=== PATIENT | male | born 1960 | race Caucasian/White ===

== ENCOUNTER 2020-10-12 00:02 | Emergency (ER) | payer MEDICAID ==
[~2020-10-12] VITALS: Ht 182.9 cm; Wt 97.5 kg
[2020-10-12 00:52] LABS: BILIRUBIN,URINE NEGATIVE (NEGATIVE); COLOR,URINE YELLOW (YELLOW); LEUKOCYTE ESTERASE ,URINE NEGATIVE (NEGATIVE); NITRITE, URINE NEGATIVE (NEGATIVE); PH,URINE 6.5 (5.0-8.0); PROTEIN,URINE NEGATIVE (NEGATIVE); UGLUCOSE NEGATIVE (NEGATIVE); UROBILINOGEN,URINE 0.2 EU/dL (0.2)
[2020-10-12 00:53] LABS: BASOPHILS # (AUTO) 0.1 /CMM (0.0-0.2); BASOPHILS % (AUTO) 0.8 % (0.0-2.0); EOSINOPHILS % (AUTO) 0.9 % (0.0-6.0); HEMATOCRIT 44 % (39-51); HEMOGLOBIN 14.5 g/dL (13.5-17.5); LYMPHOCYTES # (AUTO) 1.6 /CMM (0.8-4.8); LYMPHOCYTES % (AUTO) 22.5 % (20.0-44.0); MEAN CORPUSCULAR HGB CONC 33 g/dl (31.0-36.0); MEAN CORPUSCULAR VOLUME 88 fL (80-96); MONOCYTES # (AUTO) 0.8 /CMM (0.1-1.30); MONOCYTES % (AUTO) 10.9 % (2.0-12.0); NEUTROPHILS # (AUTO) 4.7 /CMM (1.8-8.9); NEUTROPHILS % (AUTO) 64.9 % (43.0-81.0); PLATELET COUNT (AUTO) 283 /CMM (150-450); RED BLOOD CELL COUNT(AUTO) 5.06 MIL/uL (4.5-6.0); WHITE BLOOD COUNT (AUTO) 7.2 K/uL (4.3-11.0)
[2020-10-12 01:16] LABS: ALBUMIN 3.8 g/dL (3.4-5.0); BILIRUBIN,DIRECT 0.1 mg/dL (0.0-0.2); BILIRUBIN,TOTAL 0.4 mg/dL (0.2-1.0); CALCIUM, SERUM 8.9 mg/dL (8.5-10.1); CREATININE 1.4 mg/dL (0.6-1.3); TOTAL PROTEIN, SERUM 7.4 g/dL (6.4-8.2)
[2020-10-12 15:29] VITALS: BP 141/80
== END 2020-10-12 18:04 ==
LOC: ER 00:04
DX: F31.9 Bipolar disorder, unspecified (principal); R45.851 Suicidal ideations; Z59.0 Homelessness; Z20.822 Contact with and (suspected) exposure to COVID-19; R94.31 Abnormal electrocardiogram [ECG] [EKG]
CPT/HCPCS: 36415; 80048; 80076; 80299; 80307; 80320; 81003; 85025; 87426; 93005; 99285; C9803; G0480

== ENCOUNTER 2020-10-18 02:24 | Emergency (ER) | payer MEDICAID ==
[~2020-10-18] VITALS: Ht 182.9 cm; Wt 97.5 kg
--- NOTE | 2020-10-18 04:10 | NUR ---
PRESENTED TO THE ER FOR C/O DEPRESSION AND SI, WANNA HEURT HIMSELF AND REQUESTING COLUNTARY ADMISSION TO A PSYCH HOSPITAL. PT AMBULATORY WITH STEADY GAITS TO THE BATHROOM. URINE SAMPLE OBTAINED. PT REMAINED ON CLOSE SUPERVISION AND SI PRECAUTION. WILL CONT TO MONITOR
[2020-10-18 04:39] LABS: HEMATOCRIT 44 % (39-51); HEMOGLOBIN 14.6 g/dL (13.5-17.5); MEAN CORPUSCULAR HGB CONC 33 g/dl (31.0-36.0); MEAN CORPUSCULAR VOLUME 87 fL (80-96); NEUTROPHILS % (AUTO) 65.6 % (43.0-81.0); PLATELET COUNT (AUTO) 277 /CMM (150-450); RED BLOOD CELL COUNT(AUTO) 5.07 MIL/uL (4.5-6.0); WHITE BLOOD COUNT (AUTO) 7.5 K/uL (4.3-11.0)
[2020-10-18 04:40] LABS: BASOPHILS # (AUTO) 0.1 /CMM (0.0-0.2); BASOPHILS % (AUTO) 1.1 % (0.0-2.0); EOSINOPHILS % (AUTO) 1.2 % (0.0-6.0); LYMPHOCYTES # (AUTO) 1.8 /CMM (0.8-4.8); MONOCYTES # (AUTO) 0.6 /CMM (0.1-1.30); MONOCYTES % (AUTO) 8.1 % (2.0-12.0); NEUTROPHILS # (AUTO) 4.9 /CMM (1.8-8.9)
[2020-10-18 04:41] LABS: BILIRUBIN,URINE NEGATIVE (NEGATIVE); COLOR,URINE YELLOW (YELLOW); LEUKOCYTE ESTERASE ,URINE NEGATIVE (NEGATIVE); NITRITE, URINE NEGATIVE (NEGATIVE); PROTEIN,URINE NEGATIVE (NEGATIVE); UGLUCOSE NEGATIVE (NEGATIVE); UROBILINOGEN,URINE 0.2 EU/dL (0.2)
[2020-10-18 04:56] LABS: BACTERIA,URINE None seen /HPF (None Seen); RBC,URINE 0-2 /HPF (0-2); SQUAMOUS EPITHELIAL CELL,UR Few /HPF (None Seen); WBC,URINE 0-2 /HPF (0-3)
[2020-10-18 05:11] LABS: CALCIUM, SERUM 8.8 mg/dL (8.5-10.1); CARBON DIOXIDE 28 mmol/L (21-32); CHLORIDE 105 mmol/L (98-107); GLUCOSE 83 mg/dL (74-106); POTASSIUM 4.2 mmol/L (3.5-5.1); SODIUM SERUM 142 mmol/L (136-145); UREA NITROGEN, BLOOD 15 mg/dL (7-18)
[2020-10-18 05:17] LABS: ALANINE AMINOTRANSFERASE 32 U/L (12-78); ALBUMIN 3.9 g/dL (3.4-5.0); ALCOHOL, BLOOD 10 mg/dL (0-0); ALKALINE PHOSPHATASE 82 U/L (46-116); ASPARTATE AMINOTRANSFERASE 22 U/L (15-37); BILIRUBIN,DIRECT 0.1 mg/dL (0.0-0.2); BILIRUBIN,TOTAL 0.3 mg/dL (0.2-1.0); TOTAL PROTEIN, SERUM 7.6 g/dL (6.4-8.2)
[2020-10-18 05:24] LABS: ACETAMINOPHEN < 2 ug/ml (10-30)
--- NOTE | 2020-10-18 08:36 | NUR ---
PATIENT ASLEEP BUT EASILY AROUSABLE. NO DISTRESS NOTED. NEEDS ATTENDED.
--- NOTE | 2020-10-18 09:41 | NUR ---
SPOKE TO RODRIGUEZ FROM [facility] AND PATIENT HAS BEEN ACCEPTED TO [facility] UNDER THE CARE OF DR. COLLINS. PATIENT WILL BE GOING TO UNIT 1. NUMBER FOR REPORT [phone] EXT [phone].
--- NOTE | 2020-10-18 09:45 | NUR ---
CALLED [facility] FOR TRANSPORT TO [facility]. ETA 45 MINUTES.
--- NOTE | 2020-10-18 09:47 | NUR ---
report given to Kari de luna for gricelda
[2020-10-18 09:48] VITALS: BP 145/83
--- NOTE | 2020-10-18 11:18 | NUR ---
patient picked up by private ambulance going to [facility] in no distress.
== END 2020-10-18 11:18 ==
LOC: ER 02:24
DX: F31.9 Bipolar disorder, unspecified (principal); R45.851 Suicidal ideations; F20.9 Schizophrenia, unspecified; Z20.822 Contact with and (suspected) exposure to COVID-19
CPT/HCPCS: 36415; 80048; 80076; 80299; 80307; 80320; 81001; 85025; 87426; 99285; C9803; G0480

== ENCOUNTER 2020-11-03 18:34 | Emergency (ER) | payer MEDICAID ==
[~2020-11-03] VITALS: Ht 182.9 cm; Wt 90.7 kg
--- NOTE | 2020-11-03 18:49 | NUR ---
TO ER CHAIR AWAITING MD REBOLLEDO,1:1 SITTER,SUICIDE PRECAUTION
[2020-11-03 19:36] LABS: BILIRUBIN,URINE SMALL (NEGATIVE); COLOR,URINE YELLOW (YELLOW); LEUKOCYTE ESTERASE ,URINE Negative (NEGATIVE); NITRITE, URINE Negative (NEGATIVE); PH,URINE 5.5 (5.0-8.0); PROTEIN,URINE Negative (NEGATIVE); UGLUCOSE Negative (NEGATIVE)
[2020-11-03 19:40] LABS: BACTERIA,URINE Rare /HPF (None Seen); RBC,URINE NONE SEEN /HPF (0-2); SQUAMOUS EPITHELIAL CELL,UR Few /HPF (None Seen); WBC,URINE NONE SEEN /HPF (0-3)
[2020-11-03 19:52] LABS: BASOPHILS % (AUTO) 0.3 % (0.0-2.0); EOSINOPHILS % (AUTO) 2.4 % (0.0-6.0); HEMATOCRIT 41 % (39-51); HEMOGLOBIN 13.3 g/dL (13.5-17.5); LYMPHOCYTES # (AUTO) 1.1 /CMM (0.8-4.8); LYMPHOCYTES % (AUTO) 14.2 % (20.0-44.0); MEAN CORPUSCULAR HGB CONC 33 g/dl (31.0-36.0); MEAN CORPUSCULAR VOLUME 89 fL (80-96); MONOCYTES # (AUTO) 0.7 /CMM (0.1-1.30); MONOCYTES % (AUTO) 8.2 % (2.0-12.0); NEUTROPHILS % (AUTO) 74.9 % (43.0-81.0); PLATELET COUNT (AUTO) 293 /CMM (150-450); WHITE BLOOD COUNT (AUTO) 8.1 K/uL (4.3-11.0)
[2020-11-03 19:59] LABS: CALCIUM, SERUM 8.3 mg/dL (8.5-10.1); CARBON DIOXIDE 29 mmol/L (21-32); CHLORIDE 102 mmol/L (98-107); GLUCOSE 126 mg/dL (74-106); POTASSIUM 4.4 mmol/L (3.5-5.1); SODIUM SERUM 136 mmol/L (136-145); UREA NITROGEN, BLOOD 19 mg/dL (7-18)
[2020-11-03 20:05] LABS: ALANINE AMINOTRANSFERASE 83 U/L (12-78); ALBUMIN 3.3 g/dL (3.4-5.0); ALCOHOL, BLOOD 4 mg/dL (0-0); ALKALINE PHOSPHATASE 83 U/L (46-116); ASPARTATE AMINOTRANSFERASE 120 U/L (15-37); BILIRUBIN,DIRECT 0.1 mg/dL (0.0-0.2); BILIRUBIN,TOTAL 0.3 mg/dL (0.2-1.0); TOTAL PROTEIN, SERUM 6.8 g/dL (6.4-8.2)
[2020-11-03 20:07] LABS: ACETAMINOPHEN < 2 ug/ml (10-30)
--- NOTE | 2020-11-03 20:56 | NUR ---
LAB CALLED REGARDING NEGATIVE COVID RESULT.
--- NOTE | 2020-11-03 21:03 | NUR ---
CLINICAL AND FACESHEET FAXED TO [facility]TAKE FOR VOLUNTARY PSYCH ADMISSION.
[2020-11-04 01:05] VITALS: BP 130/88
--- NOTE | 2020-11-04 01:57 | NUR ---
TRANSFER INFORMATION: PT ACCEPTED AT [facility] ACCEPTING MD COLLINS PT WILL GO TO UNIT 2 PHONE NUMBER FOR REPORT
--- NOTE | 2020-11-04 02:06 | NUR ---
called [facility] to set up transport. will call back with unruly. Trip # [id number]
--- NOTE | 2020-11-04 03:18 | NUR ---
[facility] E[facility]-45 MINUTES
--- NOTE | 2020-11-04 03:23 | NUR ---
REPORT GIVEN TO ANT EASTMAN AT [facility]
--- NOTE | 2020-11-04 03:50 | NUR ---
report given to ems along with transfer paperwork
== END 2020-11-04 03:58 ==
LOC: ER 18:36
DX: R45.851 Suicidal ideations (principal); F31.9 Bipolar disorder, unspecified; F20.9 Schizophrenia, unspecified; Z20.822 Contact with and (suspected) exposure to COVID-19
CPT/HCPCS: 36415; 80048; 80076; 80299; 80307; 80320; 81001; 85025; 87426; 99285; C9803; G0480

== ENCOUNTER 2020-11-22 01:38 | Emergency (ER) | payer MEDICAID ==
[~2020-11-22] VITALS: Ht 177.8 cm; Wt 90.7 kg
--- NOTE | 2020-11-22 02:17 | NUR ---
URINE COLLECTED. SENT TO LAB
--- NOTE | 2020-11-22 02:30 | NUR ---
PRESENTED TO THE ER FOR C/O SI, PLANNING RUN IN TO TRAIN. PT AMBULATORY WITH STEADY GAITS TO THE BATHROOM. URINE COLLECTED AND SENT TO LAB. VSS. PT REMAINED UNDER CLOSE SUPERVISION AND SI PRECAUTION IMPLEMENTED. WILL CONT TO MONITOR ,
[2020-11-22 02:36] LABS: BILIRUBIN,URINE NEGATIVE (NEGATIVE); COLOR,URINE YELLOW (YELLOW); LEUKOCYTE ESTERASE ,URINE NEGATIVE (NEGATIVE); NITRITE, URINE NEGATIVE (NEGATIVE); PROTEIN,URINE NEGATIVE (NEGATIVE); UGLUCOSE NEGATIVE (NEGATIVE); UROBILINOGEN,URINE 0.2 EU/dL (0.2)
[2020-11-22 02:38] LABS: BASOPHILS # (AUTO) 0.1 /CMM (0.0-0.2); BASOPHILS % (AUTO) 0.8 % (0.0-2.0); EOSINOPHILS % (AUTO) 1.7 % (0.0-6.0); HEMATOCRIT 44 % (39-51); HEMOGLOBIN 14.5 g/dL (13.5-17.5); LYMPHOCYTES # (AUTO) 1.9 /CMM (0.8-4.8); LYMPHOCYTES % (AUTO) 19.7 % (20.0-44.0); MEAN CORPUSCULAR HGB CONC 33 g/dl (31.0-36.0); MEAN CORPUSCULAR VOLUME 88 fL (80-96); MONOCYTES # (AUTO) 0.8 /CMM (0.1-1.30); MONOCYTES % (AUTO) 8.3 % (2.0-12.0); NEUTROPHILS # (AUTO) 6.5 /CMM (1.8-8.9); NEUTROPHILS % (AUTO) 69.5 % (43.0-81.0); PLATELET COUNT (AUTO) 343 /CMM (150-450); RED BLOOD CELL COUNT(AUTO) 5.01 MIL/uL (4.5-6.0); WHITE BLOOD COUNT (AUTO) 9.4 K/uL (4.3-11.0)
[2020-11-22 02:47] LABS: CALCIUM, SERUM 8.9 mg/dL (8.5-10.1); CREATININE 1.4 mg/dL (0.6-1.3); POTASSIUM 4.5 mmol/L (3.5-5.1)
[2020-11-22 02:52] LABS: ALBUMIN 3.9 g/dL (3.4-5.0); BILIRUBIN,DIRECT 0.1 mg/dL (0.0-0.2); BILIRUBIN,TOTAL 0.4 mg/dL (0.2-1.0); TOTAL PROTEIN, SERUM 7.7 g/dL (6.4-8.2)
[2020-11-22 02:58] LABS: BACTERIA,URINE None seen /HPF (None Seen); SQUAMOUS EPITHELIAL CELL,UR Few /HPF (None Seen); URINE AMORPHOUS URATE Few /HPF (None Seen); WBC,URINE 0-2 /HPF (0-3)
--- NOTE | 2020-11-22 03:01 | NUR ---
COVID NEGATIVE PER LAB
--- NOTE | 2020-11-22 03:23 | NUR ---
FACESHEET AND CLINICALS FAXED TO [facility].
--- NOTE | 2020-11-22 07:25 | NUR ---
ASSESSED PT ON BED ASLEEP EASILY AROUSABLE, NOT IN RESPIRATORY DISTRESS, V/S STABLE, KEPT RESTED AND COMFORTABLE. WILL CONTINUE TO MONITOR.
--- NOTE | 2020-11-22 09:46 | NUR ---
PT ACCEPTED TO [facility] [place] UNDER DR. TEJADA CALL [phone] X [phone] ROSSY.
--- NOTE | 2020-11-22 10:00 | NUR ---
CALLED TRANSPORT AM [facility] ETA 60 MINS PER CECIL.
--- NOTE | 2020-11-22 10:30 | NUR ---
SS Consult: SS Consult requested for SI. The pt. is a 60- year old male. JANELLE met with pt. bedside. The pt. is Alert & oriented x 4. The pt. stated he came to seek medical attention for SI with plan to run into traffic. JANELLE assessed pt.s mental health Hx. Per pt. he has been diagnosed with Depression & schizophrenia in the past and has been prescribed with Zoloft. Per pt. he is experiencing homelessness since 2017 and was last residing at [facility] but left because they wanted to take his phone away if he did not wear a face mask. Per pt. he receives food stamps. Per pt. his support system includes his sister, Belgica Marquez [phone]. Per pt. he has current SI with plan to run into traffic. Pt. denies HI and stated he is havign auditory hallucinations and voices tell him to "Jump" . JANELLE offered pt. psychiatric placement and patient is agreeable. Patient has been accepted to [facility] [phone]. The pt. signed homeless waiver. JANELLE provided pt. with the following Homeless resources and pt. accepted them : Substance Abuse resources provided included: [facility] Substance Abuse Self-Helpline ([facility]) ; CRI -HELP [address] [facility]. [place] 916t01 ; [facility] [address]63 [facility] 20008 ; [facility] Rehabilitation Program [address] [facility] [address] ; [facility] 400 [facility] [address] ; [facility] 1753 [facility] [address] ; Sameera [facility] 909 Ivan [facility] [address] ; [facility] Substance Abuse Helpline([facility] ; [facility] ; [facility]; [facility]; Cri-Help [place]; [facility] Ildefonso Coppola; [facility]; [facility] [place]; [facility] [place]; [facility], [facility]. [facility]; Alcoholics Anonymous -SFV; Ac-Lxga-Iilefof ; Marijuana Anonymous -SFV; Narcotics Anonymous www.na.org; Year-round shelters: [place] [facility] [address] [place], [place] [id number] ; [facility] [address] [place] [address]; [facility] Dhulpcy8550 [facility] [address] Winter Shelters: [facility] Provider: [facility] [place] Address: [address] [place], [address] # of Beds: 47 Population Served: [facility] 6 | [facility] Kari Ortiz [place] Provider: Home at Last Address: [address] [place] [address], [address] # of Beds: 66 Population Served: [facility] Novafora [place] Provider: First to Serve Address: [address] [facility], [address] # of Beds: 56 Population Served: [facility] Luis Agu[place] Provider: SSG/Ms. Zep[facility] House Address: [address] [facility], [address] # of Beds: 49 Population Served: [facility] 8 | [facility] Provider: First to Serve Address: [address], [address] # of Beds: 37 Population Served: [facility] Hygiene: [place] [facility]: [address] Oswaldo Jimenezridge ; [facility] [address] Cairopaulino Reseda ; [facility] [address] Avalfreda, [place] . Food Resources: [place] [facility] at [facility]- [address]. [place]; Meet Each Need with Dignity ([facility]) [address] [facility] CenterEna [place]; [facility] Food Pantry 0463 [facility]; [facility] 2557 [facility]. Mental Health resources provided: [facility] [address] [place] [address] ; [facility] [address] [facility] [address], [place] [address] ; [facility] [address] [place] [address] ; [facility] [address] [place], [place] [id number] Healthcare Clinics: [facility] [address] [facility], [address] [place]. [place] ; [facility] [address] [facility] [address] [place] [address]; [facility] Health [place] [address] [facility]. [place] [phone] Counseling--Outpatient [facility] [address] [facility], [place] [address] (Specializes in in-depth psychotherapy for emotional distress: anxiety, depression, interpersonal conflicts, life transitions, childhood abuse) [facility] [address] [place] [address] (Assist with solving problem marital difficulties, separation & divorce, aging parents, & grief, chronic & terminal illness) [facility] [address] [place] [address] (Deal with loss & grief, anxiety, marital difficulties) Homebound/Mental Health Services [address], [address] [place] [address] (Provide in-home mental services to people who are incapable of leaving their homes) Organization for Needs of the Elderly Senior Service/Resource Center [address] [place] [address] [facility] [address]. Ildefonso Coppola [place] [phone] PSYCHIATRIC OUTPATIENT SERVICES [facility] Partial Hospitalization and Intensive Outpatient Program (Managed Care and [place] Only)[address] Petty Zoraida. [facility] [phone] [facility] Partial Hospitalization and Outpatient [id number] [place], [place] [phone] [facility] Partial Hospitalization and Outpatient Nquikmn3054 Ildefonso [address]. [place], [place] [phone] ILDEFONSO CICI [facility] [place] [id number] [place], [place] [phone] [facility] Ildefonso Coppola Partial Hospitalization and Outpatient [id number] Bridgette VICTORINA [phone]
[2020-11-22 11:19] VITALS: BP 110/71
--- NOTE | 2020-11-22 11:20 | NUR ---
patient picked up by private ambulance going to [facility], in no distress.
--- NOTE | 2020-11-22 11:28 | NUR ---
REPORT GIVEN TO RAIZA MCFARLAND FROM [facility] FOR NATASHA.
== END 2020-11-22 11:20 ==
LOC: ER 01:43
DX: R45.851 Suicidal ideations (principal); F31.9 Bipolar disorder, unspecified; Z59.0 Homelessness; F17.200 Nicotine dependence, unspecified, uncomplicated; F20.9 Schizophrenia, unspecified; Z20.822 Contact with and (suspected) exposure to COVID-19; F10.10 Alcohol abuse, uncomplicated; Y90.0 Blood alcohol level of less than 20 mg/100 ml; R03.0 Elevated blood-pressure reading, without diagnosis of hypertension
CPT/HCPCS: 36415; 80048; 80076; 80299; 80307; 80320; 81001; 85025; 87426; 99285; C9803; G0480

== ENCOUNTER 2021-08-05 10:55 | Emergency (ER) | payer MEDICAID ==
[~2021-08-05] VITALS: Ht 182.9 cm; Wt 102.1 kg
--- NOTE | 2021-08-05 10:55 | NUR ---
[address]IB[address] C/O SI "I WANT TO JUMP OFF THE BRIDGE." REQUESTING VOLUNTARY PSYCH ADMISSION TO [facility]. PT IS AAOX4, NOT IN RESPIRATORY DISTRESS, V/S STABLE, KEPT RESTED AND COMFORTABLE. WILL CONTINUE TO MONITOR.
--- NOTE | 2021-08-05 11:00 | NUR ---
SEEN AND EXAMINED BY .
--- NOTE | 2021-08-05 11:04 | NUR ---
URINAL GIVEN BUT UNABLE TO PROVIDE URINE SPECIMEN THIS TIME.
--- NOTE | 2021-08-05 11:24 | NUR ---
URINE COLLECTED AND SENT TO LAB
--- NOTE | 2021-08-05 11:26 | NUR ---
COVID SWAB DONE AND SENT TO LAB
[2021-08-05 11:33] LABS: BASOPHILS # (AUTO) 0.1 K/uL (0.0-0.2); BASOPHILS % (AUTO) 0.6 % (0.0-2.0); EOSINOPHILS % (AUTO) 1.3 % (0.0-6.0); HEMATOCRIT 43 % (39-51); HEMOGLOBIN 14.3 g/dL (13.5-17.5); LYMPHOCYTES # (AUTO) 1.4 K/uL (0.8-4.8); LYMPHOCYTES % (AUTO) 10.5 % (20.0-44.0); MEAN CORPUSCULAR HGB CONC 33 g/dl (31.0-36.0); MEAN CORPUSCULAR VOLUME 88 fL (80-96); MONOCYTES # (AUTO) 1.2 K/uL (0.1-1.30); MONOCYTES % (AUTO) 9.3 % (2.0-12.0); NEUTROPHILS # (AUTO) 10.3 K/uL (1.8-8.9); NEUTROPHILS % (AUTO) 78.3 % (43.0-81.0); PLATELET COUNT (AUTO) 326 K/uL (150-450); RED BLOOD CELL COUNT(AUTO) 4.89 MIL/uL (4.5-6.0); WHITE BLOOD COUNT (AUTO) 13.1 K/uL (4.3-11.0)
[2021-08-05 11:34] LABS: BILIRUBIN,URINE NEGATIVE (NEGATIVE); COLOR,URINE YELLOW (YELLOW); LEUKOCYTE ESTERASE ,URINE NEGATIVE (NEGATIVE); NITRITE, URINE NEGATIVE (NEGATIVE); PH,URINE 5.5 (5.0-8.0); PROTEIN,URINE NEGATIVE (NEGATIVE); UGLUCOSE NEGATIVE (NEGATIVE); UROBILINOGEN,URINE 0.2 EU/dL (0.2)
[2021-08-05 11:40] LABS: BACTERIA,URINE None seen /HPF (None Seen); RBC,URINE 0-2 /HPF (0-2); SQUAMOUS EPITHELIAL CELL,UR Few /HPF (None Seen); WBC,URINE NONE SEEN /HPF (0-3)
[2021-08-05 12:30] LABS: ALANINE AMINOTRANSFERASE 51 U/L (12-78); ALBUMIN 3.9 g/dL (3.4-5.0); ALKALINE PHOSPHATASE 70 U/L (46-116); ASPARTATE AMINOTRANSFERASE 50 U/L (15-37); BILIRUBIN,DIRECT 0.3 mg/dL (0.0-0.2); CALCIUM, SERUM 8.7 mg/dL (8.5-10.1); CARBON DIOXIDE 22 mmol/L (21-32); CHLORIDE 101 mmol/L (98-107); CREATININE 1.4 mg/dL (0.6-1.3); GLUCOSE 99 mg/dL (74-106); POTASSIUM 3.7 mmol/L (3.5-5.1); SODIUM SERUM 135 mmol/L (136-145); TOTAL PROTEIN, SERUM 7.6 g/dL (6.4-8.2); UREA NITROGEN, BLOOD 25 mg/dL (7-18)
[2021-08-05 12:33] LABS: ALCOHOL, BLOOD < 3 mg/dL (0-0)
[2021-08-05 12:34] LABS: ACETAMINOPHEN 0 ug/ml (10-30)
--- NOTE | 2021-08-05 18:35 | NUR ---
REFAXED CLINICALS TO INTAKE.
--- NOTE | 2021-08-05 18:49 | NUR ---
AWATING ACCEPTANCE TO [facility], WILL LET US KNOW.
--- NOTE | 2021-08-05 20:40 | NUR ---
ACC[facility]PED [facility] UNDER DR LEE REPORT [phone] [facility] TO PICK PT UP
--- NOTE | 2021-08-05 20:44 | NUR ---
REPORT GIVEN TO CHARMAINE AT [facility]
--- NOTE | 2021-08-05 21:30 | NUR ---
Nilesh rizzo in ED - 08/06/21 at 0120 by STEFF PT PICKED UP BY [facility]. ALL BELONGINGS TRANSFERRED WITH PT.
[2021-08-05 22:02] VITALS: BP 117/76
--- NOTE | 2021-08-05 22:15 | NUR ---
PT PICKED UP BY [facility]. ALL BELONGINGS TRANSFERRED WITH PT.
== END 2021-08-05 22:15 ==
LOC: ER 10:57
DX: R45.851 Suicidal ideations (principal); Z20.822 Contact with and (suspected) exposure to COVID-19; F20.9 Schizophrenia, unspecified; F17.200 Nicotine dependence, unspecified, uncomplicated; Z59.00 Homelessness unspecified
CPT/HCPCS: 36415; 80048; 80076; 80143; 80307; 80320; 81001; 85025; 87426; 99285; C9803; G0480

== ENCOUNTER 2021-09-18 20:12 | Emergency (ER) | payer MEDICAID ==
[~2021-09-18] VITALS: Ht 182.9 cm; Wt 113.4 kg
--- NOTE | 2021-09-18 20:40 | NUR ---
PATIENT BIBS C/O S/I WITH PLAN TO JUMP OFF BRIDGE. PT SEEKING VOLUNTARY ADMISSION TO [facility]. PATIENT A/O X 4 RR EVEN AND UNLABORED. NO SOB NOTED. PATIENT AMBULATES WITH STEADY GAIT. PATIENT TAKEN TO ER BED 18. PATIENT BELONGINGS TAKEN AND PLACED IN PATIENT LOCKER. PATIENT PLACED IN HOSPITAL GOWN.
--- NOTE | 2021-09-18 20:47 | NUR ---
COVID SWAB DONE AND SENT TO LAB
--- NOTE | 2021-09-18 20:47 | NUR ---
URINE COLLECTED AND SENT TO LAB
--- NOTE | 2021-09-18 20:47 | NUR ---
ER MULTIPLE LAUNCH ROCKET SYSTEM CREWMEMBER @ BEDSIDE FOR BLOOD DRAW
[2021-09-18 20:49] LABS: BASOPHILS # (AUTO) 0.1 K/uL (0.0-0.2); BASOPHILS % (AUTO) 0.7 % (0.0-2.0); EOSINOPHILS % (AUTO) 2.6 % (0.0-6.0); HEMATOCRIT 42 % (39-51); HEMOGLOBIN 14.1 g/dL (13.5-17.5); LYMPHOCYTES # (AUTO) 1.6 K/uL (0.8-4.8); LYMPHOCYTES % (AUTO) 16.6 % (20.0-44.0); MEAN CORPUSCULAR HGB CONC 33 g/dl (31.0-36.0); MEAN CORPUSCULAR VOLUME 88 fL (80-96); MONOCYTES # (AUTO) 0.9 K/uL (0.1-1.30); NEUTROPHILS # (AUTO) 6.9 K/uL (1.8-8.9); NEUTROPHILS % (AUTO) 71.1 % (43.0-81.0); PLATELET COUNT (AUTO) 267 K/uL (150-450); RED BLOOD CELL COUNT(AUTO) 4.83 MIL/uL (4.5-6.0); WHITE BLOOD COUNT (AUTO) 9.7 K/uL (4.3-11.0)
[2021-09-18 21:19] LABS: BILIRUBIN,URINE NEGATIVE (NEGATIVE); COLOR,URINE YELLOW (YELLOW); LEUKOCYTE ESTERASE ,URINE NEGATIVE (NEGATIVE); NITRITE, URINE NEGATIVE (NEGATIVE); PROTEIN,URINE NEGATIVE (NEGATIVE); UGLUCOSE NEGATIVE (NEGATIVE); UROBILINOGEN,URINE 0.2 EU/dL (0.2)
[2021-09-18 21:26] LABS: ACETAMINOPHEN < 0 ug/ml (10-30); ALANINE AMINOTRANSFERASE 46 U/L (12-78); ALBUMIN 3.8 g/dL (3.4-5.0); ALCOHOL, BLOOD < 3 mg/dL (0-0); ALKALINE PHOSPHATASE 86 U/L (46-116); ASPARTATE AMINOTRANSFERASE 36 U/L (15-37); BILIRUBIN,DIRECT 0.2 mg/dL (0.0-0.2); BILIRUBIN,TOTAL 0.6 mg/dL (0.2-1.0); CALCIUM, SERUM 8.7 mg/dL (8.5-10.1); CARBON DIOXIDE 28 mmol/L (21-32); CHLORIDE 101 mmol/L (98-107); CREATININE 1.2 mg/dL (0.6-1.3); GLUCOSE 104 mg/dL (74-106); POTASSIUM 3.8 mmol/L (3.5-5.1); SODIUM SERUM 134 mmol/L (136-145); TOTAL PROTEIN, SERUM 7.2 g/dL (6.4-8.2); UREA NITROGEN, BLOOD 17 mg/dL (7-18)
[2021-09-18 21:30] LABS: BACTERIA,URINE Rare /HPF (None Seen); SQUAMOUS EPITHELIAL CELL,UR Few /HPF (None Seen); WBC,URINE NONE SEEN /HPF (0-3)
--- NOTE | 2021-09-19 03:29 | NUR ---
PT SLEEPING WELL. RESP EVEN AND NON LABORED. SAFETY MEASURES IN PLACE
--- NOTE | 2021-09-19 05:28 | NUR ---
FAXED CLINICALS AND FACE SHEET TO [facility]
--- NOTE | 2021-09-19 11:13 | NUR ---
PER [facility]TA[facility].ACCEPTED AWAITING FOR BED ASSIGNMENT AND TRANPORT INFO.
[2021-09-19 12:03] VITALS: BP 134/75
--- NOTE | 2021-09-19 12:20 | NUR ---
LUNCH PROVIDED TO PT
--- NOTE | 2021-09-19 13:36 | NUR ---
CALLED [facility] AND SET UP S TRANPOSRT ETA [phone]
--- NOTE | 2021-09-19 13:49 | NUR ---
REPORT GIVEN TO NURSE YESSY FROM [facility]
--- NOTE | 2021-09-19 16:10 | NUR ---
TRANSPORTED TO [facility] IN STABLE CONDITION.
== END 2021-09-19 16:11 ==
LOC: ER 20:12
DX: R45.851 Suicidal ideations (principal); F31.9 Bipolar disorder, unspecified; F20.9 Schizophrenia, unspecified; Z59.01 Sheltered homelessness; F15.10 Other stimulant abuse, uncomplicated; Z20.822 Contact with and (suspected) exposure to COVID-19
CPT/HCPCS: 36415; 80048; 80076; 80143; 80307; 80320; 81001; 85025; 87426; 99285; C9803; G0480

== ENCOUNTER 2021-10-06 02:10 | Emergency (ER) | payer MEDICAID ==
[~2021-10-06] VITALS: Ht 182.9 cm; Wt 90.7 kg
--- NOTE | 2021-10-06 04:55 | NUR ---
PATIENT BIBSELF C/O MED CLEARANCE FOR VOL PSYCH ADMIT, FEELS DEPRESSED, DENIES SI/HI. PATIENT IS A/O X 4, RR EVEN AND UNLABORED, NO SOB NOTED. PATIENT VSS. PT AMBULATES WITH STEADY GAIT, SKIN INTACT. PATIENT PLACED IN HOSPITAL GOWN, BELONGINGS IN LOCKER. PATIENT TAKEN TO ER BED 18.
[2021-10-06] MEDS ORDERED: ASPIRIN 81 MG TAB.CHEW PO ONE (05:00)
--- NOTE | 2021-10-06 05:15 | NUR ---
URINE COLLECTED AND SENT TO LAB
--- NOTE | 2021-10-06 05:20 | NUR ---
DASHA COLLECTED AND SENT TO LAB
[2021-10-06 05:23] LABS: BASOPHILS # (AUTO) 0.1 K/uL (0.0-0.2); BASOPHILS % (AUTO) 0.9 % (0.0-2.0); HEMATOCRIT 44 % (39-51); HEMOGLOBIN 14.6 g/dL (13.5-17.5); LYMPHOCYTES # (AUTO) 1.6 K/uL (0.8-4.8); LYMPHOCYTES % (AUTO) 24.9 % (20.0-44.0); MEAN CORPUSCULAR HGB CONC 33 g/dl (31.0-36.0); MEAN CORPUSCULAR VOLUME 88 fL (80-96); MONOCYTES # (AUTO) 0.6 K/uL (0.1-1.30); MONOCYTES % (AUTO) 9.1 % (2.0-12.0); NEUTROPHILS % (AUTO) 62.1 % (43.0-81.0); PLATELET COUNT (AUTO) 280 K/uL (150-450); RED BLOOD CELL COUNT(AUTO) 4.98 MIL/uL (4.5-6.0); WHITE BLOOD COUNT (AUTO) 6.4 K/uL (4.3-11.0)
[2021-10-06 05:33] LABS: CARBON DIOXIDE 30 mmol/L (21-32); CHLORIDE 105 mmol/L (98-107); GLUCOSE 92 mg/dL (74-106); SODIUM SERUM 139 mmol/L (136-145); UREA NITROGEN, BLOOD 20 mg/dL (7-18)
[2021-10-06 05:40] LABS: ALANINE AMINOTRANSFERASE 38 U/L (12-78); ALBUMIN 3.6 g/dL (3.4-5.0); ALCOHOL, BLOOD < 3 mg/dL (0-0); ALKALINE PHOSPHATASE 77 U/L (46-116); ASPARTATE AMINOTRANSFERASE 17 U/L (15-37); BILIRUBIN,DIRECT 0.1 mg/dL (0.0-0.2); BILIRUBIN,TOTAL 0.4 mg/dL (0.2-1.0); TOTAL PROTEIN, SERUM 7.2 g/dL (6.4-8.2)
[2021-10-06] MEDS ORDERED: ASPIRIN 81 MG TAB.CHEW ONE (05:57)
[2021-10-06 06:15] LABS: ACETAMINOPHEN < 2 ug/ml (10-30)
[2021-10-06 06:47] LABS: BILIRUBIN,URINE NEGATIVE (NEGATIVE); COLOR,URINE YELLOW (YELLOW); LEUKOCYTE ESTERASE ,URINE NEGATIVE (NEGATIVE); NITRITE, URINE NEGATIVE (NEGATIVE); PROTEIN,URINE NEGATIVE (NEGATIVE); UGLUCOSE NEGATIVE (NEGATIVE); UROBILINOGEN,URINE 0.2 EU/dL (0.2)
[2021-10-06 08:19] LABS: BACTERIA,URINE None seen /HPF (None Seen); SQUAMOUS EPITHELIAL CELL,UR Rare /HPF (None Seen); WBC,URINE 0-2 /HPF (0-3)
--- NOTE | 2021-10-06 08:32 | NUR ---
BREAKFAST PROVIDED, ATE 100%
--- NOTE | 2021-10-06 09:00 | NUR ---
FAXED CLINICALS TO [facility]
[2021-10-06 09:55] VITALS: BP 137/74
--- NOTE | 2021-10-06 09:57 | NUR ---
PT ACC[facility]ED TO [facility] UNDER THE CARE OF DR. THOMAS NUMBER FOR REPORT [phone]
--- NOTE | 2021-10-06 10:06 | NUR ---
PICKED UP BY [facility] IN STABLE CONDITION
== END 2021-10-06 10:31 ==
LOC: ER 02:16
DX: F31.9 Bipolar disorder, unspecified (principal); Z20.822 Contact with and (suspected) exposure to COVID-19; Z59.00 Homelessness unspecified; F20.9 Schizophrenia, unspecified
CPT/HCPCS: 36415; 80048; 80076; 80143; 80307; 80320; 81001; 85025; 87426; 99285; C9803; G0480

== ENCOUNTER 2021-10-14 03:45 | Emergency (ER) | payer MEDICAID ==
[~2021-10-14] VITALS: Ht 182.9 cm; Wt 94.8 kg
--- NOTE | 2021-10-14 05:21 | NUR ---
URINE COLLECTED AND SENT TO LAB
--- NOTE | 2021-10-14 05:30 | NUR ---
BIBS C/O S/I WITH PLAN TO OD ON PILLS, SEEKING VOLUNTARY ADMISSION. PT TAKEN TO ER BED 18. BELONGINGS COLLECTED AND PLACED IN PT LOCKER. PT PLACED IN HOSPITAL GOWN. VSS. WILL CONTINUE TO MONITOR.
[2021-10-14 05:48] LABS: BILIRUBIN,URINE NEGATIVE (NEGATIVE); COLOR,URINE YELLOW (YELLOW); LEUKOCYTE ESTERASE ,URINE NEGATIVE (NEGATIVE); NITRITE, URINE NEGATIVE (NEGATIVE); PH,URINE 5.5 (5.0-8.0); PROTEIN,URINE NEGATIVE (NEGATIVE); UGLUCOSE NEGATIVE (NEGATIVE); UROBILINOGEN,URINE 0.2 EU/dL (0.2)
[2021-10-14 05:55] LABS: WBC,URINE NONE SEEN /HPF (0-3)
[2021-10-14 05:56] LABS: BACTERIA,URINE None seen /HPF (None Seen); SQUAMOUS EPITHELIAL CELL,UR None Seen /HPF (None Seen)
[2021-10-14 06:46] LABS: BASOPHILS # (AUTO) 0.1 K/uL (0.0-0.2); BASOPHILS % (AUTO) 0.8 % (0.0-2.0); EOSINOPHILS % (AUTO) 2.2 % (0.0-6.0); HEMATOCRIT 43 % (39-51); HEMOGLOBIN 14.2 g/dL (13.5-17.5); LYMPHOCYTES # (AUTO) 1.7 K/uL (0.8-4.8); LYMPHOCYTES % (AUTO) 22.9 % (20.0-44.0); MEAN CORPUSCULAR HGB CONC 33 g/dl (31.0-36.0); MEAN CORPUSCULAR VOLUME 88 fL (80-96); MONOCYTES # (AUTO) 0.8 K/uL (0.1-1.30); NEUTROPHILS # (AUTO) 4.9 K/uL (1.8-8.9); NEUTROPHILS % (AUTO) 64.1 % (43.0-81.0); PLATELET COUNT (AUTO) 250 K/uL (150-450); RED BLOOD CELL COUNT(AUTO) 4.84 MIL/uL (4.5-6.0); WHITE BLOOD COUNT (AUTO) 7.6 K/uL (4.3-11.0)
[2021-10-14 07:23] LABS: ALANINE AMINOTRANSFERASE 27 U/L (12-78); ALBUMIN 3.8 g/dL (3.4-5.0); ALKALINE PHOSPHATASE 73 U/L (46-116); ASPARTATE AMINOTRANSFERASE 16 U/L (15-37); BILIRUBIN,DIRECT 0.1 mg/dL (0.0-0.2); BILIRUBIN,TOTAL 0.5 mg/dL (0.2-1.0); CALCIUM, SERUM 8.7 mg/dL (8.5-10.1); CARBON DIOXIDE 22 mmol/L (21-32); CHLORIDE 107 mmol/L (98-107); CREATININE 1.1 mg/dL (0.6-1.3); GLUCOSE 101 mg/dL (74-106); POTASSIUM 4.1 mmol/L (3.5-5.1); SODIUM SERUM 141 mmol/L (136-145); TOTAL PROTEIN, SERUM 7.2 g/dL (6.4-8.2); UREA NITROGEN, BLOOD 16 mg/dL (7-18)
[2021-10-14 07:34] LABS: ACETAMINOPHEN < 10 ug/ml (10-30); ALCOHOL, BLOOD < 3 mg/dL (0-0)
--- NOTE | 2021-10-14 07:46 | NUR ---
FAXED CLINICALS TO [facility]
--- NOTE | 2021-10-14 12:26 | NUR ---
[facility] CALLED AND GAVE ACCEPTANCE INFO ETA FOR GAMING TABLE OPERATOR IS 1330 NUMBER FOR REPORT [phone]
--- NOTE | 2021-10-14 14:20 | NUR ---
[facility]. THE WILL CALL BACK.
[2021-10-14 15:50] VITALS: BP 129/84
--- NOTE | 2021-10-14 17:00 | NUR ---
PT STATED HE IS NOT SUICIDAL ANYMORE AND WANTS TO BE DISCHARGED.
--- NOTE | 2021-10-14 17:20 | NUR ---
Patient eloped from facility. ER MD notified.
== END 2021-10-14 17:21 | disposition left against medical advice (07) ==
LOC: ER 03:54
DX: R45.851 Suicidal ideations (principal); F31.30 Bipolar disorder, current episode depressed, mild or moderate severity, unspecified; F20.9 Schizophrenia, unspecified; Z59.00 Homelessness unspecified; Z20.822 Contact with and (suspected) exposure to COVID-19; Z53.29 Procedure and treatment not carried out because of patient's decision for other reasons
CPT/HCPCS: 36415; 80048; 80076; 80143; 80307; 80320; 81001; 85025; 87426; 99285; C9803; G0480

== ENCOUNTER 2021-10-18 04:05 | Emergency (ER) | payer MEDICAID ==
[~2021-10-18] VITALS: Ht 182.9 cm; Wt 95.3 kg
--- NOTE | 2021-10-18 04:56 | NUR ---
BIBS. TO ER BED 18. AAOX4. NOT IN RESP DISTRESS. AMBULATORY. CAME IN FOR SUICIDAL IDEATION W/ PLAN TO JUMP INFRONT OF A TRAIN. PT IS SEEKING VOLUNTARY ADMISSION. DENIES HOMICIDAL IDEATION. PT IS GOWN, BELONGINGS IN LOCKER AND SITTER WITHIN SIGHT. AWAITING MD FOR EVAL.
[2021-10-18 05:45] LABS: BASOPHILS # (AUTO) 0.1 K/uL (0.0-0.2); BASOPHILS % (AUTO) 0.5 % (0.0-2.0); EOSINOPHILS % (AUTO) 0.4 % (0.0-6.0); HEMATOCRIT 42 % (39-51); HEMOGLOBIN 13.6 g/dL (13.5-17.5); LYMPHOCYTES # (AUTO) 1.3 K/uL (0.8-4.8); MEAN CORPUSCULAR HGB CONC 33 g/dl (31.0-36.0); MEAN CORPUSCULAR VOLUME 90 fL (80-96); MONOCYTES % (AUTO) 7.9 % (2.0-12.0); NEUTROPHILS # (AUTO) 10.4 K/uL (1.8-8.9); NEUTROPHILS % (AUTO) 81.2 % (43.0-81.0); PLATELET COUNT (AUTO) 236 K/uL (150-450); RED BLOOD CELL COUNT(AUTO) 4.66 MIL/uL (4.5-6.0); WHITE BLOOD COUNT (AUTO) 12.8 K/uL (4.3-11.0)
[2021-10-18 05:53] LABS: CALCIUM, SERUM 8.8 mg/dL (8.5-10.1); CARBON DIOXIDE 25 mmol/L (21-32); CHLORIDE 100 mmol/L (98-107); CREATININE 1.2 mg/dL (0.6-1.3); GLUCOSE 99 mg/dL (74-106); POTASSIUM 3.5 mmol/L (3.5-5.1); SODIUM SERUM 136 mmol/L (136-145); UREA NITROGEN, BLOOD 16 mg/dL (7-18)
[2021-10-18 05:58] LABS: ALANINE AMINOTRANSFERASE 32 U/L (12-78); ALBUMIN 3.8 g/dL (3.4-5.0); ALCOHOL, BLOOD < 3 mg/dL (0-0); ALKALINE PHOSPHATASE 84 U/L (46-116); ASPARTATE AMINOTRANSFERASE 38 U/L (15-37); BILIRUBIN,DIRECT 0.3 mg/dL (0.0-0.2); TOTAL PROTEIN, SERUM 7.4 g/dL (6.4-8.2)
[2021-10-18 05:59] LABS: ACETAMINOPHEN 0 ug/ml (10-30)
--- NOTE | 2021-10-18 07:27 | NUR ---
FAXED FACE SHEET AND CLININCALS TO [facility]
--- NOTE | 2021-10-18 07:45 | NUR ---
PATIENT PROVIDED BREAKFAST, TOLERATED WELL
--- NOTE | 2021-10-18 07:54 | NUR ---
ASSESSED PT ON BED ASLEEP EASILY AROUSABLE, NOT IN RESPIRATORY DISTRESS, V/S STABLE, KEPT RESTED AND COMFORTABLE. WILL CONTINUE TO MONITOR.
[2021-10-18 07:59] LABS: BILIRUBIN,URINE SMALL (NEGATIVE); COLOR,URINE DARK YELLOW (YELLOW); LEUKOCYTE ESTERASE ,URINE NEGATIVE (NEGATIVE); NITRITE, URINE NEGATIVE (NEGATIVE); PROTEIN,URINE NEGATIVE (NEGATIVE); UGLUCOSE NEGATIVE (NEGATIVE); UROBILINOGEN,URINE 0.2 EU/dL (0.2)
[2021-10-18 08:26] LABS: BACTERIA,URINE None seen /HPF (None Seen); MUCUS,URINE Few /LPF (None Seen); SQUAMOUS EPITHELIAL CELL,UR None Seen /HPF (None Seen)
--- NOTE | 2021-10-18 10:53 | NUR ---
FOLLOWED-UP WITH [facility]. AWAITING FEEDBACK FROM [facility].
--- NOTE | 2021-10-18 12:23 | NUR ---
CALLED INTAKE [facility] PT ACCEPTED TO [facility] IN [place] UNDER DR. COLLINS PLEASE CALL [phone] FOR REPORT. [facility] WILL ARRANGE TRANSPORT. PER RODRIGUEZ.
--- NOTE | 2021-10-18 12:55 | NUR ---
[facility] AT BEDSIDE FOR HOTSHOT SUPERINTENDENT.
[2021-10-18 12:56] VITALS: BP 131/69
== END 2021-10-18 12:57 ==
LOC: ER 04:06
DX: R45.851 Suicidal ideations (principal); F19.10 Other psychoactive substance abuse, uncomplicated; D72.829 Elevated white blood cell count, unspecified; F15.10 Other stimulant abuse, uncomplicated; Z20.822 Contact with and (suspected) exposure to COVID-19; F31.9 Bipolar disorder, unspecified; F20.9 Schizophrenia, unspecified; Z59.02 Unsheltered homelessness
CPT/HCPCS: 36415; 80048; 80076; 80143; 80307; 80320; 81001; 85025; 87426; 99285; C9803; G0480

== ENCOUNTER 2022-01-06 20:11 | Emergency (ER) | payer MEDICAID ==
[~2022-01-06] VITALS: Ht 182.9 cm; Wt 99.8 kg
--- NOTE | 2022-01-06 20:49 | NUR ---
TO ER BED 19. BIBRA39 FR [facility] C/O HEADACHE , ALSO STATES "SI, HAS TO SAY THAT TO GET A BED TO SLEEP". AAOX4. AMBULATORY WITH STEADY GAIT. BREATHING IS EVEN AND NONLABORED. BELONGINGS OBTAINED AND SECURED IN LOCKER. CHANGED INTO GOWN. CONNECTED TO MONITOR. AWAITING MD REBOLLEDO
--- NOTE | 2022-01-06 20:50 | NUR ---
COVID SWAB COLLECTED AND SENT TO LAB
--- NOTE | 2022-01-06 20:50 | NUR ---
URINE SAMPLE COLLECTED AND SENT TO LAB
[2022-01-06] MEDS ORDERED: ACETAMINOPHEN 325 MG TABLET PO ONE (21:00)
[2022-01-06] MEDS ORDERED: ACETAMINOPHEN 325 MG TABLET ONE (21:01)
--- NOTE | 2022-01-06 21:04 | NUR ---
PT TAKEN FOR CT SCAN
[2022-01-06 21:32] LABS: BILIRUBIN,URINE NEGATIVE (NEGATIVE); COLOR,URINE YELLOW (YELLOW); LEUKOCYTE ESTERASE ,URINE NEGATIVE (NEGATIVE); NITRITE, URINE NEGATIVE (NEGATIVE); PH,URINE 5.5 (5.0-8.0); PROTEIN,URINE NEGATIVE (NEGATIVE); UGLUCOSE NEGATIVE (NEGATIVE); UROBILINOGEN,URINE 0.2 EU/dL (0.2)
[2022-01-06 21:39] LABS: BACTERIA,URINE None seen /HPF (None Seen); MUCUS,URINE Few /LPF (None Seen); SQUAMOUS EPITHELIAL CELL,UR 0-2 /HPF (None Seen); URIC ACID CRYSTALS,URINE Few /HPF (None Seen); WBC,URINE 0-2 /HPF (0-3)
[2022-01-06 22:29] LABS: BASOPHILS # (AUTO) 0.1 K/uL (0.0-0.2); BASOPHILS % (AUTO) 0.9 % (0.0-2.0); HEMATOCRIT 40 % (39-51); HEMOGLOBIN 13.2 g/dL (13.5-17.5); LYMPHOCYTES # (AUTO) 1.8 K/uL (0.8-4.8); LYMPHOCYTES % (AUTO) 29.4 % (20.0-44.0); MEAN CORPUSCULAR HGB CONC 33 g/dl (31.0-36.0); MEAN CORPUSCULAR VOLUME 88 fL (80-96); MONOCYTES # (AUTO) 0.5 K/uL (0.1-1.30); MONOCYTES % (AUTO) 8.8 % (2.0-12.0); NEUTROPHILS # (AUTO) 3.6 K/uL (1.8-8.9); NEUTROPHILS % (AUTO) 58.9 % (43.0-81.0); PLATELET COUNT (AUTO) 287 K/uL (150-450); WHITE BLOOD COUNT (AUTO) 6.1 K/uL (4.3-11.0)
[2022-01-06 22:39] LABS: CALCIUM, SERUM 8.2 mg/dL (8.5-10.1); CARBON DIOXIDE 25 mmol/L (21-32); CHLORIDE 106 mmol/L (98-107); CREATININE 1.1 mg/dL (0.6-1.3); GLUCOSE 95 mg/dL (74-106); POTASSIUM 3.9 mmol/L (3.5-5.1); SODIUM SERUM 140 mmol/L (136-145); UREA NITROGEN, BLOOD 20 mg/dL (7-18)
[2022-01-06 22:45] LABS: ACETAMINOPHEN 5 ug/ml (10-30); ALANINE AMINOTRANSFERASE 36 U/L (12-78); ALBUMIN 3.4 g/dL (3.4-5.0); ALKALINE PHOSPHATASE 81 U/L (46-116); ASPARTATE AMINOTRANSFERASE 24 U/L (15-37); BILIRUBIN,DIRECT 0.1 mg/dL (0.0-0.2); BILIRUBIN,TOTAL 0.5 mg/dL (0.2-1.0); TOTAL PROTEIN, SERUM 6.8 g/dL (6.4-8.2)
[2022-01-06 22:50] LABS: ALCOHOL, BLOOD < 3 mg/dL (0-0)
--- NOTE | 2022-01-07 00:15 | NUR ---
FACESHEET AND CLINICALS FAXED TO [facility].
--- NOTE | 2022-01-07 06:42 | NUR ---
PT WILL BE TRANSPORTED TO [facility] AT 0800.
--- NOTE | 2022-01-07 06:43 | NUR ---
REPORT GIVEN TO RAIZA HAYES
[2022-01-07 09:30] VITALS: BP 132/77
--- NOTE | 2022-01-07 09:53 | NUR ---
patient left in stable condition accompanied by [address] [facility] in no distress. All belongings sent with patient.
== END 2022-01-07 09:53 ==
LOC: ER 20:15
DX: R51.9 Headache, unspecified (principal); R07.9 Chest pain, unspecified; Z20.822 Contact with and (suspected) exposure to COVID-19; Z59.00 Homelessness unspecified; F15.10 Other stimulant abuse, uncomplicated; F16.10 Hallucinogen abuse, uncomplicated; F31.9 Bipolar disorder, unspecified; F20.9 Schizophrenia, unspecified; I51.9 Heart disease, unspecified
CPT/HCPCS: 36415; 70450; 71045; 80048; 80076; 80143; 80307; 80320; 81001; 84484 ×2; 85025; 87426; 99285; C9803; G0480

== ENCOUNTER 2022-01-13 03:59 | Emergency (ER) | payer MEDICAID ==
--- NOTE | 2022-01-13 05:31 | NUR ---
LEFT WITHOUT BEING SEEN
== END 2022-01-13 05:33 | disposition left against medical advice (07) ==
LOC: ER 04:08
DX: Z53.21 Procedure and treatment not carried out due to patient leaving prior to being seen by health care provider (principal)